=== PATIENT | male | born 1955 | race Caucasian/White ===

== ENCOUNTER 2019-12-20 08:57 | Observation (INO) ==
--- NOTE | 2019-11-17 13:49 | PAT Medication Instructions ---
Medication Instructions Date of Service November 17, 2019 Home Medications acetaminophen [Tylenol] 325 mg PO QID PRN ascorbate calcium (vitamin C) [Cynthia-C] 500 mg PO QAM DO NOT take the morning of surgery ascorbate calcium (vitamin C) [Cynthia-C] 500 mg PO QAM Take morning of surgery With a small sip of water, OTHERWISE NOTHING TO EAT OR DRINK AFTER MIDNIGHT: acetaminophen [Tylenol] 325 mg PO QID PRN (okay to take up to 4 hours prior to surgery if needed) Take evening before surgery acetaminophen [Tylenol] 325 mg PO QID PRN (if needed) Other Notes If you have any questions please call us at [phone] or [phone] or [phone] or [phone]
--- NOTE | 2019-11-27 09:11 | Anesthesiology Consultation ---
Date of Service November 27, 2019 Assessment & Plan (1) Encounter for pre-operative examination: COVID Status: As of 11/26 assessment, patient denies travel to endemic area, known exposure/sick contacts, or symptoms of COVID19. Patient instructed that they and their household members must follow strict social distancing guidelines, wear a mask in public and avoid travel for 14 days prior to surgery. Preoperative COVID19 testing to be completed prior to surgery per surgeon's ar rangements. Patient made aware to self-isolate as much as possible between COVID testing and surgery. Chart Review Chart Review: Acceptable Risk for Surgery and Patient seen in Pre Admission Testing Teaching & Discussion Instructed NPO after midnight before surgery, except medications with 15 cc of w ater. Medication instructions provided according to the PAT guidelines. History Surgery Operation Date: 12/20/19 11:40 Proposed Procedures p Right Total Knee Arthroplasty - Kevin Hobbs MD Height/Weight Height: 5 ft 8 in Weight: 110.4 kg Allergies Allergy/AdvReac Type Severity Reaction Status Date / Time No Known Allergies Allergy Verified 11/15/19 11:17 Medications Home Medications Medication Instructions Recorded Confirmed Last Taken acetaminophen [Tylenol] 325 mg PO QID PRN 11/15/19 11/15/19 Unknown ascorbate calcium (vitamin C) 500 mg PO QAM 11/15/19 11/15/19 Unknown [Cynthia-C] Past Medical History Medical History (Updated 11/27/19 @ 09:26 by Enirque Dumont) Colon cancer dx 03/2019 - s/p surgery + chemo (finished chemo 09/2019). Follows with Dr Romero at [facility]. Frequent urination Insomnia Osteoarthritis Exercise / Class Metabolic Activity II 4-5 Yardwork/Stairs/Walk up hill (currently limited by knee pain and using cane for ambulation some) Past Family History Family History Father Family history of diabetes mellitus Brother Family history of diabetes mellitus Sister Family history of diabetes mellitus Grandfather Family history of diabetes mellitus Past Surgical History Surgical History (Updated 11/27/19 @ 09:30 by Enrique Dumont) History of bowel resection w/ appendectomy History of cardiac cath > 20 YEARS AGO - C - ABN STRESS TEST - NO STENTS/ANGIOPLASTY History of cataract surgery History of herniorrhaphy RT INGUINAL History of knee surgery Rt History of vascular access device A-Port placement for chemo, R chest wall. Past Anesthesia History No Hx of Anesthesia Complications and No Family Hx of Anesthesia Complications History of PONV No Hx of PONV and No Hx of Motion Sickness Social History Smoking Status: Former smoker Do You Dip or Chew Tobacco: No (quit a few months ago) Smoking End Date: quit many years ago Hx Alcohol Use: No Hx Substance Use: No substance use type: does not use Review of Systems Pt denies any recent chest pain, shortness of breath, palpitations, cough, fever, or uncontrolled acid reflux. +recent head cold with SOB and loss of taste/smell -- patient was tested for COVID and resulted NEGATIVE. Physical Exam Vital Signs BP: 159/86. Will see PCP prior to surgery. P: 84bpm SPO2: 95% RA T: 98.3 F R: 16 Constitutional + obese ENMT Mouth: + chipped teeth (lower R side cuspid); no dental restorations and no loose teeth Thyromental Distance: > or= 3.5 Finger Breadths Mallampati Class: II Neck + short neck and + facial hair (very short goatee); neck not thick and neck extension not limited Respiratory normal respiratory effort Auscultation: lungs clear to auscultation bilaterally Cardiovascular Rate/Rhythm: regular rate and regular rhythm Heart Sounds: no murmur Vessels: no carotid bruit Extremities: no edema Testing Laboratory Results 11/27/19 09:38 11/27/19 09:38 PT 10.8 Seconds (9.0-12.0) 11/27/19 09:38 INR 1.0 (0.9-1.1) 11/27/19 09:38 APTT 26.8 Seconds (21.0-31.0) 11/27/19 09:38 Hemoglobin A1c 7.5 % (4.5-5.6) H 11/27/19 09:38 Urine Color Yellow 11/27/19 09:38 Urine Appearance Clear (Clear) 11/27/19 09:38 Urine pH 5.0 (4.5-7.5) 11/27/19 09:38 Ur Specific [place] 1.024 (1.000-1.030) 11/27/19 09:38 Urine Protein Negative (Negative) 11/27/19 09:38 Urine Glucose (UA) Negative (Negative) 11/27/19 09:38 Urine Ketones Negative (Negative) 11/27/19 09:38 Urine Nitrite Negative (Negative) 11/27/19 09:38 Ur Leukocyte Esterase Negative (Negative) 11/27/19 09:38 Blood Type A Positive 11/27/19 09:38 Antibody Screen NEGATIVE 11/27/19 09:38 Electrocardiogram Date: 11/27/19 Findings: + NSR @ (78bpm) Chest X-Ray Date: 11/27/19 Findings: + NAD
--- NOTE | 2019-11-27 10:10 | XRay Report ---
XR chest Pre-admission PA/Lat CLINICAL HISTORY: Preoperative evaluation. COMPARISON STUDY: No previous studies for comparison. FINDINGS: Lung volumes are normal. Lungs are clear. There is no pneumothorax or pleural effusion. Car diac size is normal. Mediastinal contours are normal. There is no evidence for pulmonary edema. A rig ht internal jugular [id number] is in place. IMPRESSION: No acute cardiopulmonary findings. ACT 112: Negative or not required by law. Electronically signed by: Ruben Thapa M.D. 11/27/2019 10:08 AM
[2019-11-27 11:19] LABS: Basophils # (auto) 0.01 K/uL (0-0.2); Basophils % (auto) 0.2 %; Eosinophils # (auto) 0.02 K/uL (0-0.5); Eosinophils % (auto) 0.3 %; Hemoglobin 13.3 g/dL (14.0-18.0); Lymphocytes # (auto) 3.09 K/uL (1.2-3.4); Lymphocytes % (auto) 48.3 %; Mean Corpuscular Hemoglobin 30.6 pg (25-34); Mean Corpuscular Hgb Conc 34.1 g/dL (32-36); Mean Corpuscular Volume 89.9 fL (80-100); Mean Platelet Volume 9.1 fL (7.4-10.4); Monocytes # (auto) 0.62 K/uL (0.11-0.59); Monocytes % (auto) 9.7 %; Neutrophils # (auto) 2.66 K/uL (1.4-6.5); Neutrophils % (auto) 41.5 %; Platelet Count 211 K/uL (130-400); RDW Coefficient of Variation 13.1 % (11.5-14.5); RDW Standard Deviation 42.9 fL (36.4-46.3); Red Blood Count 4.34 M/uL (4.7-6.1)
[2019-11-27 11:23] LABS: Appearance Urine Clear (Clear); Bilirubin Urine Negative (Negative); Blood Urine Negative (Negative); Color Urine Yellow; Glucose Urine UA Negative (Negative); Ketones Urine Negative (Negative); Leukocyte Esterase Urine Negative (Negative); Nitrite Urine Negative (Negative); Protein Urine Negative (Negative); Specific Gravity Urine 1.024 (1.000-1.030); Urobilinogen Urine Negative (Negative)
[2019-11-27 11:29] LABS: Albumin Level 3.5 gm/dl (3.4-5.0); BUN Creatinine Ratio 14.2 (10-20); Calcium 9.3 mg/dl (8.5-10.1); Creatinine Clr Calc Pharmacy 99.5 ml/min; Est GFR (African American) 103.7; Est GFR (Non-African American) 89.5; Potassium 4.1 mmol/L (3.5-5.1)
[2019-11-27 11:32] LABS: Partial Thromboplastin Time 26.8 Seconds (21.0-31.0); Prothrombin Time 10.8 Seconds (9.0-12.0)
[2019-11-27 11:54] LABS: Estimated Average Glucose 169 mg/dl; Hemoglobin A1C 7.5 % (4.5-5.6)
--- NOTE | 2019-11-27 16:09 | Electrocardiogram Report ---
Test Reason : Blood Pressure : / mmHG Vent. Rate : 078 BPM Atrial Rate : 078 BPM P-R Int : 178 ms QRS Dur : 084 ms QT Int : 398 ms P-R-T Axes : 031 029 021 degrees QTc Int : 453 ms Normal sinus rhythm Normal ECG No previous ECGs available Confirmed by Noel Betancourt ([id number]) on 11/27/2019 4:09:03 PM Referred By: Kevin Hobbs Confirmed By:Noel Betancourt
--- NOTE | 2019-12-19 18:03 | History and Physical Report ---
DATE OF ADMISSION: 12/20/2019 CHIEF COMPLAINT: Chronic right knee pain. HISTORY OF PRESENT ILLNESS: This is a 63-year-old male patient of Dr. Hobbs'yoanna complaining of chronic right knee pain, longstanding, now progressively getting worse. The patient has failed conservative treatment including steroid, home exercise program and the use of a brace. He cannot use anti-inflammatories due to a past history of chemotherapy. The patient has increased pain with weightbearing activities and his pain does interfere with his activities of daily living. The patient has been diagnosed with end-stage osteoarthritis per clinical and radiographic exams and elected to proceed with a right total knee arthroplasty. PAST MEDICAL HISTORY: Heart valve problem, hypertension, sleep apnea, diabetes mellitus, rheumatoid arthritis, sciatica, obesity, dental issues, colon cancer and enlarged prostate. SOCIAL HISTORY: Nonsmoker, nondrinker. FAMILY HISTORY: Noncontributory. REVIEW OF SYSTEMS: Chronic right knee pain, otherwise denies any shortness of breath, chest pain, nausea, vomiting or other joint complaints. PAST SURGICAL HISTORY: Appendectomy, hernia and left knee surgery. MEDICATIONS: Lisinopril 20 mg daily, metoprolol 50 mg twice daily, Tylenol 325 mg as needed, vitamin C 1000 mg daily, metformin 500 mg as directed. ALLERGIES: No known drug allergies. PHYSICAL EXAMINATION: GENERAL: Well-developed, well-nourished 63-year-old male in no acute distress. He is alert and oriented x3 and pleasant. HEENT: Normocephalic, atraumatic. Extraocular motions are intact. Pupils are equal and reactive to light. HEART: Regular rate and rhythm, no murmurs. LUNGS: Clear. ABDOMEN: Soft and nontender. Bowel sounds present. EXTREMITIES: Right lower extremity. Range of motion, 10-90. He has a positive effusion. He has a varus deformity with medial joint line tenderness, 5/5 strength with crepitation and pain. Neurologically and neurovascularly, he is intact in his right lower extremity. DIAGNOSES: Right knee end-stage osteoarthritis, heart valve problems, hypertension, sleep apnea, diabetes mellitus, rheumatoid arthritis, osteoarthritis, sciatica, benign prostatic hypertrophy, colon cancer, obesity and dental issues. PLAN: The patient was advised of his diagnosis. Indications, risks, benefits, postop course have all been reviewed. The patient wished to proceed with a right total knee arthroplasty. Necessary consent forms, preoperative testing and clearances will be obtained.
[~2019-12-20 08:57] MED LIST: ACETAMINOPHEN 500 MG TAB PO SCH; BUPIVACAINE 0.5 % 5 MG/1 ML PF 10ML VIAL ONE; CeleBREX 200 MG CAP PO SCH; EPINEPHrine INJ 1 MG/ML AMP ONE; FAMOTIDINE 20 MG TAB PO SCH; GABAPENTIN 300 MG CAP PO SCH; LR 500ML BOLUS, THEN 15ML/HR IV SCH; METOCLOPRAMIDE HCL 10 MG TABLET PO SCH; ROPIVACAINE 0.5% 5 MG/ML 30 ML VIAL ONE; ROPIVACAINE 0.5% HCL/PF 150 MG, BUPIVACAINE 0.5% MPF 30 ML, EPINEPHrine 30MG/30ML (OR U... INSTIL SCH; TRANEXAMIC ACID 1,000 MG **IV Intra-op IV SCH; TRANEXAMIC ACID 1,000 MG **IV Pre-op IV SCH; ceFAZolin 2000MG 2,000 MG/15 ML SYR IV SCH; dexAMETHasone 4 MG TAB PO SCH
[2019-12-20] MEDS ORDERED: MIDAZOLAM HCL 1 MG/ML 2ML VIAL ONE ×3 (11:42→12:52)
[2019-12-20] MEDS ORDERED: fentaNYL citrate 100 MCG/2 ML VIAL ONE (11:43)
--- NOTE | 2019-12-20 12:20 | History & Physical Bridge Note ---
Date of Service December 20, 2019 History & Physical Bridge Note I have examined the patient, reviewed the History & Physical and in the interval since the performance of the History & Physical I have noted the following changes of clinical significance: no changes noted
[2019-12-20] MEDS ORDERED: ORTHO JOINT ANESTHETIC ONE (12:22)
[2019-12-20] MEDS ORDERED: BACITRACIN INJ 50,000 UNIT VIAL ONE (12:22)
[2019-12-20] MEDS ORDERED: ePHEDrine sulfate 50 MG/ML AMP IV PRN (12:55)
[2019-12-20] MEDS ORDERED: ATROPINE SULFATE 0.1 MG/ML 10ML SYR IV PRN (12:55)
[2019-12-20] MEDS ORDERED: LIDOCAINE HCL 2% 2 ML VIAL/AMP(20MG/ML) INFIL ONE (13:09)
[2019-12-20] MEDS ORDERED: ONDANSETRON INJ 2 MG/ML 2 ML VIAL ONE (13:09)
[2019-12-20] MEDS ORDERED: PROPOFOL IV EMULSION 10 MG/ML 20 ML VIAL IV ONE (13:09)
--- NOTE | 2019-12-20 14:35 | Post Operative Brief Note ---
Immediate Post Op Note v1 Date of Surgery December 20, 2019 Pre & Post Diagnosis Operation Date: 12/20/19 11:25 Pre-Op Diagnosis: Right Knee, Osteoarthritis Post-Op Diagnosis: Right Knee, Osteoarthritis I identified the patient and participated in the time-out.: Yes Procedure Operation Date: 12/20/19 11:25 Actual Procedures p Right Total Knee Arthroplasty(Right) - Kevin Hobbs MD Surgeon Kevin Hobbs MD Cuffing Machine Operator DAVID Fisher Estimated Blood Loss 5 Findings Consistent with Post-Op Diagnosis Specimens Bone cuts Drains Hemovac Drain Anesthesia Type MAC Spinal Regional Complications none Disposition Accompanied Patient To Recovery: No Disposition: Recovery Room Overlapping Procedure I was immediately available: during the entire case.
--- NOTE | 2019-12-20 14:43 | Operative Report ---
Post Operative Report Pre & Post Diagnosis Operation Date: 12/20/19 11:25 Pre-Op Diagnosis: Right Knee, Osteoarthritis Post-Op Diagnosis: Right Knee, Osteoarthritis I identified the patient and participated in the time-out.: Yes Procedure Operation Date: 12/20/19 11:25 Actual Procedures p Right Total Knee Arthroplasty(Right) - Kevin Hobbs MD Surgeon Kevin Hobbs MD Superior Court Judge DAVID Fisher Estimated Blood Loss 5 Findings Consistent with Post-Op Diagnosis Specimens Bone cuts Drains Hemovac Anesthesia Type MAC Spinal Regional Complications none Disposition Accompanied Patient To Recovery: No Disposition: Recovery Room Indications 64-year-old male with chronic pain right knee with end-stage osteoarthritis mainly patellofemoral joint but has some tricompartmental osteoarthritic changes. Patient is failed conservative management. Description of Procedure Patient taken to the operating room the size under spinal MAC regional anesthesia. Patient was placed supine on the operating table. A pneumatic tourniquet was placed about the right upper thigh. The right lower extremity was prepped and draped in sterile fashion. Knee exam demonstrated previous longitudinal scar from old knee surgery 20 years ago with knee arthrotomy surgery. Patient had a 10 degree flexion contracture good flexion of the knee at least 130 degrees and no instability. There was a moderately large effusion. The leg was elevated exsanguinated with an Esmarch bandage and pneumatic tourniquet was raised to 325 millimeters of mercury. Skin incised sharply in longitudinal fashion. Subcutaneous flaps elevated. Incision was made through the medial retinaculum extending up in the mid third of the quadriceps tendon and down to the medial tibial tubercle. Intra-articular findings demonstrated grade 4 patellofemoral DJD with significant bone loss the patella. Multiple large osteophytes and calcification of the lateral retinaculum area. There was some tricompartmental osteophytes. Cruciate ligaments were still intact.. The Kindermintn total knee arthroplasty system was used. To expose the knee the infrapatellar fat pad was resected. The meniscal remnants and cruciate ligaments were resected. The anterior fat pad over the femur in the area of the anterior flange of the femoral component was resected. Lateral synovial bands release. The femur was exposed. An intramedullary drill hole was made into the canal. A flexible guide urmila was placed. Distal femoral cutting guide was adj usted to resect a 5 degree valgus cut with 10 millimeters distal femur resected. The knee was extended and a subperiosteal peel lateral release was performed around the patella. The bone spurs around the patella were resected and the loose bone fragments were all removed. The patella width was measured and width was reproduced using a freehand cut technique and a 33 x 9 symmetrical patella component. The 3 drill holes were made and the excess lateral facet was beveled off to prevent any impingement. Attention was taken back to the femur which was exposed with retractors and the femoral sizing guide was pinned in position. The drill holes were placed in 3 of external rotation to match epicondylar axis. Femur sized for a 6 posterior stabilized component. The 4-in-1 cutting block was placed and then the anterior posterior and chamfer cuts are made. The tibia was then subluxed. The external tibial cutting guide was just to make a perpendicular cut to the long axis of the tibia below the most deficient bone loss side. A lamina jalousies installer was used and the flexion extension gaps were balanced. All posterior osteophytes removed. All meniscal remnants were resected. The tibia exposed and the trial tibial component size 5 was externally rotated in line with the tibial tubercle and pinned in position. The punch for stem was used. The notch cutting device was centered appropriately and the femoral notch cut was made. The femoral trial was inserted. Trial tibial inserts were placed and size 11 posterior stabilized tibial trial gave balanced ligaments through flexion and extension. Patella tracking was assessed. The patella tracked centrally. The trial components were then removed and the orthomix anesthetic cocktail was injected per protocol. The knee was then copiously irrigated with pulsatile lavage antibiotic solution. Final components were then cemented with Simplex cement. Final components were Armando triathlon posterior stabilized right size 6 femur, size 5 primary tibial baseplate, size 5, 11 mm thickness posterior stabilized x-3polyethylene tibial bearing insert. X-3 polyethylene symmetrical 33 x 9 patella. While the cement cured the Betadine soak was used per protocol. After cement cured further pulsatile lavage irrigation performed and 2 Hemovac drains were brought out laterally. The quadriceps tendon and medial retinaculum were closed with figure of 8 #1 Vicryl sutures. The knee was taken through full range of motion and the repair was secure. The subcutaneous tissues were closed with 2-0 Vicryl sutures. Skin was closed with edwin. Sterile dressings were applied. Patient procedure well. Macho HERNANDEZ was my physician supply assistant who assisted in patient positioning prepping and draping,leg positioning ,soft tissue retr action and instrument management and participated in the closing and will participate in postoperative care of the patient. The patient tolerated the procedure well. I attest to the content of the Intraoperative Record and any orders documented therein. Any exceptions are noted below.
--- NOTE | 2019-12-20 15:06 | XRay Report ---
TWO VIEWS RIGHT KNEE CLINICAL HISTORY: Postoperative examination. FINDINGS: AP and crosstable lateral portable views of the right knee are obtained. A right knee arthr oplasty is in near anatomic alignment. There has been undersurface remodeling of the patella. No acut e fracture is seen. There are expected postoperative changes around the knee including skin clips, a surgical drain, soft tissue edema, and subcutaneous gas. IMPRESSION: Expected postoperative changes status post right knee arthroplasty. No acute fracture is seen. ACT 112: Negative or not required by law. Electronically signed by: Billy Phillips M.D. 12/20/2019 3:05 PM
--- NOTE | 2019-12-20 15:42 | Anesthesiology Progress Note ---
Date of Service December 20, 2019 Anesthesia Post Procedure Vital Signs Vital Signs: Temp Pulse Pulse Resp BP BP Pulse Ox 12/20/19 15:35 36.4 C L 68 16 135/86 96 12/20/19 15:25 36.4 C L 67 16 127/71 96 12/20/19 15:15 66 16 125/69 96 12/20/19 15:05 70 16 135/69 96 12/20/19 14:55 74 16 105/68 96 12/20/19 14:45 79 16 112/74 94 12/20/19 14:38 36.8 C 78 16 111/61 96 12/20/19 10:55 72 18 127/86 94 12/20/19 10:03 36.6 C 80 20 168/96 H 96 Pain Intensity Right Knee: Pain Intensity: 1 Transfer of Care Handoff Completed per policy Notes Mental Status: alert / awake / arousable Patient Amnestic to Procedure: Yes Nausea / Vomiting: adequately controlled Pain: adequately controlled Airway Patency, RR, SpO2: stable & adequate BP & HR: stable & adequate Hydration State: stable & adequate Neuraxial Anesthesia: was administered and sensory block is resolving Anesthetic Complications: no major complications apparent
[2019-12-20] MEDS ORDERED: ONDANSETRON INJ 2 MG/ML 2 ML VIAL IV PRN (16:07)
[2019-12-20] MEDS ORDERED: HYDROmorphone INJ 0.5 MG/0.5 ML SYR IV PRN (16:07)
[2019-12-20] MEDS ORDERED: oxyCODONE HCL IR 5 MG TAB (IMMEDIATE RELEASE) PO PRN (16:07)
[2019-12-20] MEDS ORDERED: diphenhydrAMINE Capsule 25 MG CAP PO PRN (16:07)
[2019-12-20] MEDS ORDERED: MAGNESIUM HYDROXIDE SUSP 30 ML UDC PO PRN (16:07)
[2019-12-20] MEDS ORDERED: NALOXONE HCL 0.4 MG/1 ML VIAL/CARP IV PRN (16:07)
[2019-12-20] MEDS ORDERED: bisacodyL 10 MG SUPP PR PRN (16:07)
[2019-12-20] MEDS ORDERED: GLUCOSE 40% GEL 15 GM TUBE PO PRN (17:00)
[2019-12-20] MEDS ORDERED: GLUCOSE 10 TABS/TUBE PO PRN (17:00)
[2019-12-20] MEDS ORDERED: DEXTROSE 50% 50 ML SYRINGE IV PRN (17:00)
[2019-12-20] MEDS ORDERED: CARBOHYDRATES FOR HYPOGLYCEMIA PO PRN (17:00)
[2019-12-20] MEDS ORDERED: GLUCAGON FOR INJ 1 MG VIAL IM PRN (17:00)
[2019-12-20] MEDS ORDERED: PHARMACY GLYCEMIC MGMT CONSULT PRN (17:21)
[2019-12-20] MEDS: SODIUM CHLORIDE 0.9% 1000ML 1,000 ML IV SCH (17:44)
[2019-12-20] MEDS: metFORMIN HCL 500 MG TAB PO SCH (18:01)
--- NOTE | 2019-12-20 18:19 | Pharmacy Report ---
Glycemic Control Consultation - Date of Service December 20, 2019 - Scope Scope: Glycemic Pharmacist consulted for glycemic control and to write orders per [facility] inpatient glycemic control protocol. - Objective Weight: 106.186 kg Accuchecks BSG (last 24hrs): 12/20/19 12/20/19 12/20/19 09:43 14:40 17:10 POC Glucose 120 H 144 H 143 H HbA1c: Hemoglobin A1c 7.5 % (4.5-5.6) H 11/27/19 09:38 - Recent Pertinent Medications Outpatient Anti-diabetic Regimen: * Metformin 1000 mg PO BIDM * A1c = 7.5% (11/27/2019) Risk Factors for Insulin Resistance: * Steroids: * Dexamethasone 8 mg PO x 1 pre-operatively * Recent Surgery: * POD #0 * Diet: * T2DM - Assessment & Plan Assessment & Plan: ASSESSMENT: * 64 yo M admitted for observation s/p right total knee arthroplasty. Pharmacy is consulted for inpatient glycemic management. PMHx significant for colon cancer s/p chemotherapy and radiation. * Pre-operative BSG was 120 mg/dL. Post-operative BSG was 144 mg/dL. Patient did receive a one time dose of dexamethasone prior to surgery. There is no ongoing steroid orders that I can see. * Will forego an NPH dose given dinner BSG was 143 mg/dL. Will start Novolog based on a weight and stress of 2. Will also begin Metformin 1000 mg BIDM. PLAN FOR INPATIENT GLYCEMIC CONTROL: * Metformin 1000 mg PO BIDM * Bolus insulin * NovoLog per scale ACHS or Q6hrs while NPO * Goal Range: Low 110 mg/dL - High 140 mg/dL * Correction Factor: 20 mg/dL/unit * Nutritional / Prandial insulin per carb ratio of 1 unit per 7 grams CHO consumed * Please note that the plan above was derived based on current level of insulin resistance and hospital stress. These recommendations are appropriate for inpatient admission only. Plan of care upon discharge will need to be reassessed to avoid potential outpatient hypo/hyperglycemia. Thank you.
[2019-12-20] MEDS: INSULIN ASPART 100 UNITS/ML 3 ML PEN SC SCH ×2 (18:24→21:13)
[2019-12-20] MEDS: ceFAZolin 2000MG 2,000 MG/15 ML SYR IV SCH (20:09)
[2019-12-20] MEDS ORDERED: SENNA 8.6 MG TAB PO SCH (21:00)
[2019-12-20] MEDS: DOCUSATE SODIUM 100 MG CAP PO SCH (21:09)
[2019-12-20] MEDS: METOPROLOL SUCC 50MG EXT REL TAB PO SCH (21:10)
[2019-12-20] MEDS: ACETAMINOPHEN 500 MG TAB PO SCH (21:10)
[2019-12-21] MEDS: SODIUM CHLORIDE 0.9% 1000ML 1,000 ML IV SCH (02:54)
[2019-12-21] MEDS: ceFAZolin 2000MG 2,000 MG/15 ML SYR IV SCH (05:38)
[2019-12-21] MEDS: ACETAMINOPHEN 500 MG TAB PO SCH ×2 (05:39→13:02)
[2019-12-21] MEDS: HEPARIN 100 UNIT/ML 5ML FLUSH FLUSH PRN ×2 (05:47→14:07)
[2019-12-21 06:11] LABS: Hematocrit (blood only) 30.7 % (42-52); Hemoglobin 10.4 g/dL (14.0-18.0); Mean Corpuscular Hgb Conc 33.9 g/dL (32-36); Mean Corpuscular Volume 88.5 fL (80-100); Mean Platelet Volume 8.9 fL (7.4-10.4); Platelet Count 180 K/uL (130-400); RDW Coefficient of Variation 13.4 % (11.5-14.5); RDW Standard Deviation 43.4 fL (36.4-46.3); Red Blood Count 3.47 M/uL (4.7-6.1); White Blood Count 11.16 K/uL (4.8-10.8)
[2019-12-21 06:51] LABS: BUN Creatinine Ratio 16.1 (10-20); Calcium 8.2 mg/dl (8.5-10.1); Creatinine Clr Calc Pharmacy 83.3 ml/min; Est GFR (African American) 87.3; Est GFR (Non-African American) 75.3; Potassium 4.1 mmol/L (3.5-5.1)
[2019-12-21 07:25] VITALS: O2SAT 95
[2019-12-21 07:51] VITALS: TEMP 97.9
--- NOTE | 2019-12-21 08:03 | Orthopedic Progress Note ---
Date of Service December 21, 2019 Assessment & Plan (1) Arthritis of right knee: POD #1, Right TKA PT/ OT DVT proph- Xarelto D/C plans Home w OPPT today if does well. Admission and Anticipated Discharge Date Admission Date: December 20, 2019 Subjective POD #1, Feeling well. Denies SOB, CP, N/V, dizziness. Pain controlled well. Wishes OPPT on discharge. Physical Exam Physical Exam: Right knee dressings c/d/i, no drainage. Toes/ ankle mobile. No calf tenderness. A&Ox3. VSS Results & Data ([facility]) Vital Signs (Past 12 Hours) Vital Signs Temp Pulse Pulse Resp BP Pulse Ox 12/21/19 07:51 36.6 C 65 18 120/71 95 12/21/19 07:24 37 C 62 16 110/67 95 12/21/19 03:30 36.6 C 64 16 119/73 92 12/20/19 23:42 36.6 C 66 16 110/61 94 12/20/19 20:19 36.8 C 65 16 126/68 97
[2019-12-21] MEDS: metFORMIN HCL 500 MG TAB PO SCH (08:32)
[2019-12-21] MEDS: METOPROLOL SUCC 50MG EXT REL TAB PO SCH (08:32)
[2019-12-21] MEDS: DOCUSATE SODIUM 100 MG CAP PO SCH (08:32)
[2019-12-21] MEDS: INSULIN ASPART 100 UNITS/ML 3 ML PEN SC SCH ×2 (08:37→12:14)
[2019-12-21] MEDS ORDERED: lisinopril 10 MG TAB PO SCH (09:00)
[2019-12-21] MEDS ORDERED: MULTIVITAMIN TAB PO SCH (09:00)
[2019-12-21] MEDS ORDERED: ASCORBIC ACID 500 MG TAB PO SCH (09:00)
[2019-12-21] MEDS ORDERED: RIVAROXABAN 10 MG TABLET PO SCH (09:00)
--- NOTE | 2019-12-21 09:08 | Hospitalist Consultation ---
Date of Consultation December 21, 2019 Assessment & Plan (1) Status post right knee replacement: This is a 64-year-old male with PMH of hypertension, type 2 diabetes, history of colon cancer status post resection and chemo completed in 10/04 who is POD#1 s/p R TKA by Dr. Hobbs. -POD#1 s/p R TKA by Dr. Hobbs -Pt is doing post-operatively -Per ortho for pain control, wound care, anticoagulation and activities -Monitor H&H, continue incentive spirometry, PT/OT (2) Hypertension: Normotensive. Continue metoprolol succinate and lisinopril (3) Type 2 diabetes mellitus: A1c 7.5 in Nov 2019 -SSI while in-patient -Glycemic consult placed -BSG AC HS (4) Colon cancer: History of colon cancer status post resection and chemo completed in 10/04. Follows with Dr. Romero at [facility] DVT Ppx: Xarelto per primary service PCP: Elyse Dispo: Per primary service Patient seen in collaboration with Dr. Cope. Please see addendum. Thank you for this consultation. We will follow the patient with you during their hospital stay. You can reach a [facility] via pager @ [phone]. Supervising Physician Co-Signing Physician Notes Patient is a 64-year-old man with history of colon cancer on chemotherapy, hypertension, diabetes mellitus and other medical problems was seen and examined postop after having right total knee arthroplasty by Dr. Hobbs. Patient is doing well postop. He denies any significant pain at surgical site. Also denies dyspnea, chest pain, nausea, vomiting, dizziness. Plan to be discharged home today. On exam patient is well-built and nourished, no apparent distress, normocephalic atraumatic, lungs are clear to auscultation, S1-S2, no murmur, abdomen soft, nontender, no pedal edema, right knee surgical site in dressing, Chemo-Port on right side of chest. Patient is consulted for postop medical management. Activity, pain control, wound care, DVT prophylaxis per primary team. Bowel regimen to prevent constipation. Monitor for postop anemia. Will hold p.o. medications for diabetes. Insulin therapy while hospitalized. I personally reviewed the record. Patient is interviewed and examined at bedside. Patient's care is coordinated with Kathryn Cerda PA-C. Please refer to the documentation above for details of patient's presentation and for discussion of other issues. History of Present Illness Reason for Consultation: Postop medical management Attending Physician: Kevin Hobbs MD History of Present Illness This is a 64-year-old male with PMH of hypertension, type 2 diabetes, history of colon cancer status post resection and chemo completed in 10/04 who is POD#1 s/p R TKA by Dr. Hobbs. Patient is feeling well today with minimal surgical site pain. Is participating in therapy without issue. Denies any fever, chills, headache, lightheadedness, chest pain, palpitations, nausea, vomiting, abdominal pain, dysuria, diarrhea or constipation. Allergies Allergy/AdvReac Type Severity Reaction Status Date / Time No Known Allergies Allergy Verified 12/20/19 09:50 Home Medications Home Medications Medication Instructions Recorded Confirmed Type ascorbate calcium (vitamin C) 500 mg PO QAM 11/15/19 12/20/19 History lisinopril 10 mg PO DAILY 12/20/19 12/20/19 History metformin 1,000 mg PO BID 12/20/19 12/20/19 History metoprolol succinate 100 mg PO BID 12/20/19 12/20/19 History acetaminophen 1,000 mg PO Q8 30 Days #180 tab 12/21/19 Rx oxycodone 5 mg PO Q4H PRN #30 tab 12/21/19 Rx rivaroxaban [Xarelto] 10 mg PO DAILY 14 Days #14 tab 12/21/19 Rx Patient History Medical History Colon cancer dx 03/2019 - s/p surgery + chemo (finished chemo 09/2019). Follows with Dr Romero at [facility]. Frequent urination Hypertension Insomnia Osteoarthritis Type 2 diabetes mellitus Surgical History History of bowel resection w/ appendectomy History of cardiac cath > 20 YEARS AGO - [facility] – [place] - ABN STRESS TEST - NO STENTS/ANGIOPLASTY History of cataract surgery History of herniorrhaphy RT INGUINAL History of knee surgery Rt History of vascular access device A-Port placement for chemo, R chest wall. Family History Father Family history of diabetes mellitus Brother Family history of diabetes mellitus Sister Family history of diabetes mellitus Grandfather Family history of diabetes mellitus Social History Smoking Status: Former smoker Smoking End Date: quit many years ago; Second Hand Exposure: Yes; Do You Dip or Chew Tobacco: No (quit a few months ago); Tobacco Cessation Education Requested by Patient: No Hx Alcohol Use: No Hx Substance Use: No Preferred Language: Uzbek Communication Ability: Effective Imcu Nurse Required: No Beliefs That Will Affect Care: None marital status: Current Living Situation: Spouse Feels Safe at Home: Yes Safety Concerns: Feels Safe At This Time Assistive Devices: Walker Review of Systems Review of Systems: At least ten systems reviewed and negative except as noted in the HPI. Physical Exam Physical Exam: General Appearance: WD/WN, vitals as above, NAD, sitting on side of bed ready to participate in PT, pleasant, conversing easily Head: normocephalic, atraumatic Eyes: normal inspection, PERRL, conjunctivae normal, anicteric sclerae ENT: external ear and nose normal, oropharynx normal Neck: normal visual inspection, trachea midline, no thyromegaly Respiratory: normal respiratory effort, lungs clear to auscultation, no wheeze, rales, rhonchi. No accessory muscle use Cardiovascular: regular rate, rhythm, no murmur, normal peripheral pulses, no BLE edema. Vessels: no JVD Abdomen/GI: normal bowel sounds, soft, nontender, no hepatosplenomegaly Extremities/Musculoskeletal: Right knee dressing in place. No cyanosis or clubbing, extremities motor strength 5/5 Neurologic: PERRL, EOMI, accommodation nl, no face palsy, no dysarthria, CN's II-XI intact bilaterally and moves all extremities Psychiatric: A+Ox3, euthymic affect Skin: no rashes, normal color, warm/dry Results & Data Results & Data ([facility]) Vital Signs (Past 12 Hours) Vital Signs Temp Pulse Pulse Resp BP Pulse Ox 12/21/19 07:51 36.6 C 65 18 120/71 95 12/21/19 07:24 37 C 62 16 110/67 95 12/21/19 03:30 36.6 C 64 16 119/73 92 11/04/20 23:42 36.6 C 66 16 110/61 94 Laboratory Results Short CBC 12/21/19 Range/Units 05:54 WBC 11.16 H (4.8-10.8) K/uL Hgb 10.4 L (14.0-18.0) g/dL Hct 30.7 L (42-52) % Plt Count 180 (130-400) K/uL BMP 12/21/19 05:54 Sodium 137 Potassium 4.1 Chloride 107 Carbon Dioxide 23 BUN 17 Creatinine 1.03 Glucose 189 H Calcium 8.2 L
[2019-12-21 10:52] VITALS: BP 127/86; PULSE 62
== END 2019-12-21 14:52 | disposition home or self-care (01) ==
LOC: 3E 08:57 → ASU 08:57